=== PATIENT | female | born 1955 | race Hispanic/Latino ===

== ENCOUNTER 2021-08-20 14:45 | Emergency (ER) | payer MEDICARE ==
[~2021-08-20] VITALS: Ht 152.4 cm; Wt 65.8 kg
[2021-08-20] MEDS ORDERED: DEXAMETHASONE SOD PHOS 10 MG/1 ML VIAL IM ONE (16:00)
[2021-08-20 17:06] VITALS: BP 115/77
== END 2021-08-20 17:10 | disposition home or self-care (01) ==
LOC: ER 14:48
DX: R05.9 Cough, unspecified (principal); J40 Bronchitis, not specified as acute or chronic; R07.89 Other chest pain; Z20.822 Contact with and (suspected) exposure to COVID-19; E78.5 Hyperlipidemia, unspecified
CPT/HCPCS: 71101; 99283; J1100; U0002

== ENCOUNTER 2021-10-14 15:21 | Emergency (ER) | payer MEDICARE ==
[~2021-10-14] VITALS: Ht 152.4 cm; Wt 65.8 kg
[2021-10-14] MEDS ORDERED: ALBUTEROL/IPRATROPIUM 3 ML NEB NEB ONE (16:00)
[2021-10-14] MEDS ORDERED: AZITHROMYCIN250 MG PO (16:43)
[2021-10-14] MEDS ORDERED: MEDROL4 MG PO (16:43)
[2021-10-14] MEDS ORDERED: ALBUTEROL1.25 MG/3 NEB (16:43)
[2021-10-14] MEDS ORDERED: DEXAMETHASONE SOD PHOS 10 MG/1 ML VIAL ONE (16:43)
[2021-10-14] MEDS ORDERED: DEXAMETHASONE SOD PHOS 10 MG/1 ML VIAL IM ONE (17:00)
== END 2021-10-14 17:00 | disposition home or self-care (01) ==
LOC: ER 15:28
DX: J45.909 Unspecified asthma, uncomplicated (principal); E78.5 Hyperlipidemia, unspecified; Z79.899 Other long term (current) drug therapy
CPT/HCPCS: 71045; 94640; 94799; 99283; J1100